=== PATIENT | male | born 1975 | race Caucasian/White ===

== ENCOUNTER 2018-07-01 23:54 | Inpatient (IN) | payer MEDICARE ==
[~2018-07-01] VITALS: Ht 167.6 cm; Wt 84.4 kg
--- NOTE | ~2018-07-01 | MORECARE ---
CASE MANAGEMENT DISCHARGE SUMMARY PATIENT: CHUCK RAJAN UNIT: [id number] ADM DATE: 07/02/18 AGE: 43 : 75 SEX: M ROOM/BED: D.1208 AUTHOR: EMIGDIO,DOC PHYSICIAN: REFERRING PHYSICIAN: YUMIKO GONZALEZ DO DATE OF SERVICE: 07/08/18 Discharge Plan Patient Name: CHUCK RAJAN Facility: [facility]:[place] : 1975 Planned Disposition: Custodial Facility Anticipated Discharge Date: Discharge Date: Expected LOS: Initial Reviewer: [email or web address] Initial Review Date: 07/02/2018 Generated: 07/08/18 5:11 pm Comments DCP- Discharge Planning Updated by [id number]: Kamala Ellis on 07/08/18 3:[address] CM notified that MD anticipates discharge back to half-way tomorrow. CM called patient's Joann FOSTER Treat and confirmed that she wants patient to return to [facility] upon hospital DC. Informed her that hospital anticipates discharge tomorrow. Reviewed IMM. CM called and spoke with Britt[facility] at [facility] about anticipated DC. CM was informed that facility would need YOLIS completed. CM completed and faxed YOLIS. CM faxed requested records to half-way. Awaiting YOLIS results. CM will continue to follow and assist as needed with discharge planning needs. DCP- Discharge Planning Updated by [email or web address]: Elisa Fonseca on 07/07/18 5:[address] Patient Name: CHUCK RAJAN Admission Status: ER Accout number: [id number] Admission Date: 07-02-2018 : 1975 Admission Diagnosis:SEPSIS, UNSPECIFIED ORGANISM Attending: YUMIKO GONZALEZ Current LOS: 5 Anticipated DC Date: Planned Disposition: Custodial Facility Primary Insurance: MEDICARE A & B Discharge Planning Comments: Patient is a resident of [facility] . Patient is non-verbal. CM will continue to follow and assist with discharge planning / needs. Neurological Surgery Teacher: Elisa Fonseca DCP- Discharge Planning Updated by [email or web address]: Elisa Fonseca on 07/07/18 2:[address] CM has attempted to visit with patient he is non-verbal. According to records he is from a [facility] but unaware of which facility he is in. CM attempted to call contact listed received notice "not accepting calls at this time". CM will try to find out which facility he is from. External Providers External Provider: [facility] and [facility] Next Contact Date: Service Request Date: Service Type: Resolution: Reviewer: Comments: External Provider: WAYNE Taylor Next Contact Date: Service Request Date: Service Type: Resolution: Reviewer: Comments: Coverage Notice Reviewer: [id number] Ellis Notice Issued Date-Time: 07/08/2018 16:10 Notice Type: IM Discharge Notice Notice Delivered To: Other Relationship to Patient: Power of Log Inspector Mule Developer Name: Joann Treat Delivery Method: PHONE - Phone Adriana Days: Prior Verbal Notification: Recipient Understood Notice: Yes Recipient Signature: Med Rec Note Co-signed by Attending: Coverage Notice Comment: Reviewer: MARQUISE Ellis Notice Issued Date-Time: 07/08/2018 16:10 Notice Type: Patient Choice Letter Notice Delivered To: Other Relationship to Patient: Power of Log Inspector Mule Developer Name: Joann Treat Delivery Method: PHONE - Phone Adriana Days: Prior Verbal Notification: Recipient Understood Notice: Yes Recipient Signature: Med Rec Note Co-signed by Attending: Coverage Notice Comment: Last DP export: 07/07/18 5:08 p Patient Name: CHUCK RAJAN Page 71936 at 1611 All edits/amendments must be made on the electronic document DICTATION DATE: 07/08/18 1610 PRODUCTION CONTROL CLERK: KRISTEN 07/08/18 1610 RPT#: [id number] DC DATE: STATUS: ADM IN [facility] [address] [place] [address] END OF REPORT
--- NOTE | ~2018-07-01 | MORECARE ---
CASE MANAGEMENT DISCHARGE SUMMARY PATIENT: CHUCK RAJAN UNIT: [id number] ADM DATE: 07/02/18 AGE: 43 : 75 SEX: M ROOM/BED: D.2306 AUTHOR: MELA BEAL PHYSICIAN: REFERRING PHYSICIAN: YUMIKO GONZALEZ DO DATE OF SERVICE: 07/06/18 Discharge Plan Patient Name: CHUCK RAJAN [facility] : 1975 Planned Disposition: Anticipated Discharge Date: Discharge Date: Expected LOS: Initial Reviewer: [email or web address] Initial Review Date: 07/02/2018 Generated: 07/06/18 8:23 pm Patient Name: CHUCK RAJAN Page 56950 at 1923 All edits/amendments must be made on the electronic document DICTATION DATE: 07/06/181922 SLIVER LAPPER: KRISTEN 07/06/181922 RPT#: [id number] DC DATE: STATUS: ADM IN [facility] [address] [place] [address] END OF REPORT
--- NOTE | ~2018-07-01 | MORECARE ---
CASE MANAGEMENT DISCHARGE SUMMARY PATIENT: CHUCK RAJAN UNIT: [id number] ADM DATE: 07/02/18 AGE: 43 : 75 SEX: M ROOM/BED: D.1208 AUTHOR: EMIGDIO,DOC PHYSICIAN: REFERRING PHYSICIAN: YUMIKO GONZALEZ DO DATE OF SERVICE: 07/09/18 Discharge Plan Patient Name: CHUCK RAJAN Facility: [facility]:[place] : 1975 Planned Disposition: Long-Term Facility Anticipated Discharge Date: Discharge Date: Expected LOS: Initial Reviewer: [email or web address] Initial Review Date: 07/02/2018 Generated: 07/09/18 1:29 pm Comments DCP- Discharge Planning Updated by [email or web address]: Kamala Ellis on 07/09/18 11:[address] Patient will be admitted to a SNF (Medicare Bed) at [facility]. DCP- Discharge Planning Updated by [email or web address]: Kamala Ellis on 07/09/18 11:[address] CM called and spoke with Brittaney at [facility]. RANDI informed Brittaney that YOLIS application was received and approved. And asked Brittaney about MD's request for facility to administer IV Vanc and IV Merrem for 3 more days. Brittaney stated the facility could complete patients IV antibiotics and requested that hospital leave current IV access in place and wait to discharge patient back to facility after todays 1300 dose. CM faxed updated records and copy of YOLIS to Brittaney as requested. RANDI spoke with nurse Nohemy about leaving IV access for penitentiary, may discharge patient back to facility via ambulance after 1300 Vanc and Merrem dose. Nohemy voiced understanding. CM attempted to reach patient's POA, Joann Treat but received voice message that says "The person you are trying to reach is not accepting calls at this time" CM will continue to attempt to reach POA. DCP- Discharge Planning Updated by [email or web address]: Kamala Ellis on 07/08/18 3:[address] CM notified that MD anticipates discharge back to penitentiary tomorrow. RANDI called patient's POA, Joann Treat and confirmed that she wants patient to return to [facility] upon hospital DC. Informed her that hospital anticipates discharge tomorrow. Reviewed IMM. CM called and spoke with Brittaney at [facility] about anticipated DC. CM was informed that facility would need YOLIS completed. CM completed and faxed YOLIS. CM faxed requested records to penitentiary. Awaiting YOLIS results. CM will continue to follow and assist as needed with discharge planning needs. DCP- Discharge Planning Updated by [id number]: Elisa Fonseca on 07/07/18 5:[address] Patient Name: CHUCK RAJAN Admission Status: ER Accout number: [id number] Admission Date: 07-02-2018 : 1975 Admission Diagnosis:SEPSIS, UNSPECIFIED ORGANISM Attending: YUMIKO GONZALEZ Current LOS: 5 Anticipated DC Date: Planned Disposition: Long-Term Facility Primary Insurance: MEDICARE A & B Discharge Planning Comments: Patient is a resident of [facility] . Patient is non-verbal. CM will continue to follow and assist with discharge planning / needs. German Teacher: Elisa Fonseca DCP- Discharge Planning Updated by [id number]: Elisa Marian on 07/07/18 2:[address] CM has attempted to visit with patient he is non-verbal. According to records he is from a [facility] but unaware of which facility he is in. CM attempted to call contact listed received notice "not accepting calls at this time". CM will try to find out which facility he is from. Coverage Notice Reviewer: [email or web address] Cristina Ellis Notice Issued Date-Time: 07/08/2018 16:10 Notice Type: IM Discharge Notice Notice Delivered To: Other Relationship to Patient: Power of Job Placement Officer Control Panel Builder Name: Joann Treat Delivery Method: PHONE - Phone Adriana Days: Prior Verbal Notification: Recipient Understood Notice: Yes Recipient Signature: Med Rec Note Co-signed by Attending: Coverage Notice Comment: Reviewer: [id number] Cristina Ellis Notice Issued Date-Time: 07/08/2018 16:10 Notice Type: Patient Choice Letter Notice Delivered To: Other Relationship to Patient: Power of Job Placement Officer Control Panel Builder Name: Joann Treat Delivery Method: PHONE - Phone Adriana Days: Prior Verbal Notification: Recipient Understood Notice: Yes Recipient Signature: Med Rec Note Co-signed by Attending: Coverage Notice Comment: Last DP export: 07/09/18 11:10 a Patient Name: CHUCK RAJAN Page 07875 at 1229 All edits/amendments must be made on the electronic document DICTATION DATE: 07/09/181227 GROUNDS CREW SUPERVISOR: KRISTEN 07/09/181227 RPT#: [id number] DC DATE: STATUS: ADM IN [facility] [address] [place] [address] END OF REPORT
--- NOTE | ~2018-07-01 | MORECARE ---
CASE MANAGEMENT DISCHARGE SUMMARY PATIENT: CHUCK RAJAN UNIT: [id number] ADM DATE: 07/02/18 AGE: 43 : 75 SEX: M ROOM/BED: D.1208 AUTHOR: MELA BEAL PHYSICIAN: REFERRING PHYSICIAN: YUMIKO GONZALEZ DO DATE OF SERVICE: 07/07/18 Discharge Plan Patient Name: CHUCK RAJAN Facility: [facility]:[place] : 1975 Planned Disposition: Anticipated Discharge Date: Discharge Date: Expected LOS: Initial Reviewer: [email or web address] Initial Review Date: 07/02/2018 Generated: 07/07/18 5:01 pm Comments DCP- Discharge Planning Updated by [email or web address]: Elisa Fonseca on 07/07/18 2:[address] CM has attempted to visit with patient he is non-verbal. According to records [facility] a [facility] but unaware of which facility he is in. CM attempted to call contact listed received notice "not accepting calls at this time". CM will try to find out which facility he is from. Last DP export: 07/06/18 6:23 p Patient Name: CHUCK RAJAN Page 81398 at 1601 All edits/amendments must be made on the electronic document DICTATION DATE: 07/07/18 160 ALLEY CLEANER: KRISTEN 07/07/18 1601 RPT#: [id number] DC DATE: STATUS: ADM IN [facility] [address] [place] [address] END OF REPORT
--- NOTE | ~2018-07-01 | MORECARE ---
CASE MANAGEMENT DISCHARGE SUMMARY PATIENT: CHUCK RAJAN UNIT: [id number] ADM DATE: 07/02/18 AGE: 43 : 75 SEX: M ROOM/BED: D.1208 AUTHOR: EMIGDIO,DOC PHYSICIAN: REFERRING PHYSICIAN: YUMIKO GONZALEZ DO DATE OF SERVICE: 07/09/18 Discharge Plan Patient Name: CHUCK RAJAN Facility: [facility]:[place] : 1975 Planned Disposition: Intermediate Facility Anticipated Discharge Date: Discharge Date: Expected LOS: Initial Reviewer: [id number] Initial Review Date: 07/02/2018 Generated: 07/09/18 1:10 pm Comments DCP- Discharge Planning Updated by [email or web address]: Kamala Ellis on 07/09/18 11:[address] RANDI called and spoke with Brittaney at [facility]. CM informed Brittaney that YOLIS application was received and approved. And asked Brittaney about MD's request for facility to administer IV Vanc and IV Merrem for 3 more days. Brittaney stated the facility could complete patients IV antibiotics and requested that hospital leave current IV access in place and wait to discharge patient back to facility after todays 1300 dose. CM faxed updated records and copy of YOLIS to Brittaney as requested. RANDI spoke with nurse Nohemy about leaving IV access for detention, may discharge patient back to facility via ambulance after 1300 Vanc and Merrem dose. Nohemy voiced understanding. CM attempted to reach patient's POAJoann Treat but received voice message that says "The person you are trying to reach is not accepting calls at this time" CM will continue to attempt to reach POA. DCP- Discharge Planning Updated by [email or web address]: Kamala Ellis on 07/08/18 3:[address] CM notified that MD anticipates discharge back to detention tomorrow. CM called patient's POAJoann Treat and confirmed that she wants patient to return to [facility] custodial upon hospital DC. Informed her that hospital anticipates discharge tomorrow. Reviewed IMM. CM called and spoke with Brittaney at [facility] about anticipated DC. CM was informed that facility would need YOLIS completed. CM completed and faxed YOLIS. CM faxed requested records to detention. Awaiting YOLIS results. CM will continue to follow and assist as needed with discharge planning needs. DCP- Discharge Planning Updated by [id number]: Elisa Fonseca on 07/07/18 5:[address] Patient Name: CHUCK RAJAN Admission Status: ER Accout number: [id number] Admission Date: 07-02-2018 : 1975 Admission Diagnosis:SEPSIS, UNSPECIFIED ORGANISM Attending: YUMIKO GONZALEZ Current LOS: 5 Anticipated DC Date: Planned Disposition: Intermediate Facility Primary Insurance: MEDICARE A & B Discharge Planning Comments: Patient is a resident of [facility] . Patient is non-verbal. CM will continue to follow and assist with discharge planning / needs. Leather Goods I Assembler: Elisa Fonseca DCP- Discharge Planning Updated by [id number]: Elisa Marian on 07/07/18 2:[address] CM has attempted to visit with patient he is non-verbal. According to records he is from a [facility] but unaware of which facility he is in. CM attempted to call contact listed received notice "not accepting calls at this time". CM will try to find out which facility he is from. Coverage Notice Reviewer: [id number] Ellis Notice Issued Date-Time: 07/08/2018 16:10 Notice Type: IM Discharge Notice Notice Delivered To: Other Relationship to Patient: Power of Rn Endoscopy Creative Arts Therapist Name: Joann Valdes Delivery Method: PHONE - Phone Adriana Days: Prior Verbal Notification: Recipient Understood Notice: Yes Recipient Signature: Med Rec Note Co-signed by Attending: Coverage Notice Comment: Reviewer: [id number] Ellis Notice Issued Date-Time: 07/08/2018 16:10 Notice Type: Patient Choice Letter Notice Delivered To: Other Relationship to Patient: Power of Rn Endoscopy Creative Arts Therapist Name: Joann Valdes Delivery Method: PHONE - Phone Adriana Days: Prior Verbal Notification: Recipient Understood Notice: Yes Recipient Signature: Med Rec Note Co-signed by Attending: Coverage Notice Comment: Last DP export: 07/08/18 3:11 p Patient Name: CHUCK RAJAN Page 11785 at 1210 All edits/amendments must be made on the electronic document DICTATION DATE: 07/09/181208 TOMATO PULPER OPERATOR: KRISTEN 07/09/181208 RPT#: [id number] DC DATE: STATUS: ADM IN [facility] [address] [place] [address] END OF REPORT
--- NOTE | ~2018-07-01 | MORECARE ---
CASE MANAGEMENT DISCHARGE SUMMARY PATIENT: CHUCK RAJAN UNIT: [id number] ADM DATE: 07/02/18 AGE: 43 : 75 SEX: M ROOM/BED: D.1208 AUTHOR: MELA BEAL PHYSICIAN: REFERRING PHYSICIAN: YUMIKO GONZALEZ DO DATE OF SERVICE: 07/07/18 Discharge Plan Patient Name: CHUCK RAJAN Facility: [facility]:[place] : 1975 Planned Disposition: Group Home Facility Anticipated Discharge Date: Discharge Date: Expected LOS: Initial Reviewer: [email or web address] Initial Review Date: 07/02/2018 Generated: 07/07/18 7:08 pm Comments DCP- Discharge Planning Updated by [email or web address]: Elisa Fonseca on 07/07/18 5:[address] Patient Name: CHUCK RAJAN Admission Status: ER Accout number: [id number] Admission Date: 07-02-2018 : 1975 Admission Diagnosis:SEPSIS, UNSPECIFIED ORGANISM Attending: YUMIKO GONZALEZ Current LOS: 5 Anticipated DC Date: Planned Disposition: Group Home Facility Primary Insurance: MEDICARE A & B Discharge Planning Comments: Patient is a resident of [facility] . Patient is non-verbal. CM will continue to follow and assist with discharge planning / needs. Hairspring Ii Inspector: Elisa Fonseca DCP- Discharge Planning Updated by [email or web address]: Elisa Fonseca on 07/07/18 2:[address] CM has attempted to visit with patient he is non-verbal. According to records he is from a [facility] but unaware of which facility he is in. CM attempted to call contact listed received notice "not accepting calls at this time". CM will try to find out which facility he is from. Last DP export: 07/07/18 3:01 p Patient Name: CHUCK RAJAN Page 31213 at 1808 All edits/amendments must be made on the electronic document DICTATION DATE: 07/07/181806 EVENING OR NIGHT NURSE SUPERVISOR: KRISTEN 07/07/181806 RPT#: [id number] DC DATE: STATUS: ADM IN [facility] [address] [place] [address] END OF REPORT
--- NOTE | ~2018-07-01 | MORECARE ---
CASE MANAGEMENT DISCHARGE SUMMARY PATIENT: CHUCK RAJAN UNIT: [id number] ADM DATE: 07/02/18 AGE: 43 : 75 SEX: M ROOM/BED: D.1208 AUTHOR: EMIGDIO,DOC PHYSICIAN: REFERRING PHYSICIAN: YUMIKO GONZALEZ DO DATE OF SERVICE: 07/09/18 Discharge Plan Patient Name: CHUCK RAJAN Facility: [facility]:[place] : 1975 Planned Disposition: [facility] Facility Anticipated Discharge Date: Discharge Date: Expected LOS: Initial Reviewer: [id number] Initial Review Date: 07/02/2018 Generated: 07/09/18 3:15 pm Comments DCP- Discharge Planning Updated by [email or web address]: Kamala Ellis on 07/09/18 1:[address] CM called and spoke with CRISTIAN Joanndax Avila to inform her of expected discharge back to [facility] upon arrival of ambulance to transport patient. Joann verbalized understanding and satisfaction with discharge plan. DCP- Discharge Planning Updated by [email or web address]: Kamala Ellis on 07/09/18 11:[address] Patient will be admitted to a SNF (Medicare Bed) at [facility]. DCP- Discharge Planning Updated by [email or web address]: Kamala Ellis on 07/09/18 11:[address] CM called and spoke with Brittaney at [facility]. RANDI informed Brittaney that YOLIS application was received and approved. And asked Brittaney about MD's request for facility to administer IV Vanc and IV Merrem for 3 more days. Brittaney stated the facility could complete patients IV antibiotics and requested that hospital leave current IV access in place and wait to discharge patient back to facility after todays 1300 dose. CM faxed updated records and copy of YOLIS to Brittaney as requested. RANDI spoke with nurse Nohemy about leaving IV access for longterm, may discharge patient back to facility via ambulance after 1300 Vanc and Merrem dose. Nohemy voiced understanding. CM attempted to reach patient's POA, Joanndax Valdes but received voice message that says "The person you are trying to reach is not accepting calls at this time" CM will continue to attempt to reach POA. DCP- Discharge Planning Updated by [email or web address]: Kamala Ellis on 07/08/18 3:[address] CM notified that MD anticipates discharge back to longterm tomorrow. CM called patient's POA, Joann Valdes and confirmed that she wants patient to return to [facility] upon hospital DC. Informed her that hospital anticipates discharge tomorrow. Reviewed IMM. CM called and spoke with Brittaney at [facility] about anticipated DC. CM was informed that facility would need YOLIS completed. CM completed and faxed YOLIS. CM faxed requested records to longterm. Awaiting YOLIS results. CM will continue to follow and assist as needed with discharge planning needs. DCP- Discharge Planning Updated by [email or web address]: Elisa Fonseca on 07/07/18 5:[address] Patient Name: CHUCK RAJAN Admission Status: ER Accout number: [id number] Admission Date: 07-02-2018 : 1975 Admission Diagnosis:SEPSIS, UNSPECIFIED ORGANISM Attending: YUMIKO GONZALEZ Current LOS: 5 Anticipated DC Date: Planned Disposition: [facility] Facility Primary Insurance: MEDICARE A & B Discharge Planning Comments: Patient is a resident of [facility] . Patient is non-verbal. CM will continue to follow and assist with discharge planning / needs. Conche Operator: Elisa Fonseca DCP- Discharge Planning Updated by [email or web address]: Elisa Fonseca on 07/07/18 2:[address] CM has attempted to visit with patient he is non-verbal. According to records he is from a Snf but unaware of which facility he is in. CM attempted to call contact listed received notice "not accepting calls at this time". CM will try to find out which facility he is from. Coverage Notice Reviewer: [email or web address] Cristina Ellis Notice Issued Date-Time: 07/08/2018 16:10 Notice Type: IM Discharge Notice Notice Delivered To: Other Relationship to Patient: Power of Cio Alfalfa Dehydrator Operator Name: Joann Valdes Delivery Method: PHONE - Phone Adriana Days: Prior Verbal Notification: Recipient Understood Notice: Yes Recipient Signature: Med Rec Note Co-signed by Attending: Coverage Notice Comment: Reviewer: [id number] Cristina Ellis Notice Issued Date-Time: 07/08/2018 16:10 Notice Type: Patient Choice Letter Notice Delivered To: Other Relationship to Patient: Power of Cio Alfalfa Dehydrator Operator Name: Joann Valdes Delivery Method: PHONE - Phone Adriana Days: Prior Verbal Notification: Recipient Understood Notice: Yes Recipient Signature: Med Rec Note Co-signed by Attending: Coverage Notice Comment: Last DP export: 07/09/18 11:29 a Patient Name: CHUCK RAJAN Page 59730 at 1415 All edits/amendments must be made on the electronic document DICTATION DATE: 07/09/181413 OB/GYN: KRISTEN 07/09/181413 RPT#: [id number] DC DATE: STATUS: ADM IN [facility] [address] [place] [address] END OF REPORT
--- NOTE | ~2018-07-01 | MORECARE ---
CASE MANAGEMENT DISCHARGE SUMMARY PATIENT: CHUCK RAJAN UNIT: [id number] ADM DATE: 07/02/18 AGE: 43 : 75 SEX: M ROOM/BED: D.1208 AUTHOR: EMIGDIO,DOC PHYSICIAN: REFERRING PHYSICIAN: YUMIKO GONZALEZ DO DATE OF SERVICE: 07/10/18 Discharge Plan Patient Name: CHUCK RAJAN Facility: [facility]:[place] : 1975 Planned Disposition: Longterm Facility Anticipated Discharge Date: Discharge Date: 07/09/2018 Expected LOS: 0 Initial Reviewer: [id number] Initial Review Date: 07/02/2018 Generated: 07/10/18 9:26 am Comments DCP- Discharge Planning Updated by [email or web address]: Kamala Ellis on 07/09/18 1:[address] CM called and spoke with CRISTIAN Joann Austin to inform her of expected discharge back to [facility] upon arrival of ambulance to transport patient. Joann verbalized understanding and satisfaction with discharge plan. DCP- Discharge Planning Updated by [email or web address]: Kamala Ellis on 07/09/18 11:[address] Patient will be admitted to a SNF (Medicare Bed) at [facility]. DCP- Discharge Planning Updated by [email or web address]: Kamala Ellis on 07/09/18 11:[address] CM called and spoke with Brittaney at [facility]. CM informed Brittaney that YOLIS application was received and approved. And asked Brittaney about 's request for facility to administer IV Vanc and IV Merrem for 3 more days. Brittaney stated the facility could complete patients IV antibiotics and requested that hospital leave current IV access in place and wait to discharge patient back to facility after todays 1300 dose. RANDI faxed updated records and copy of YOLIS to Brittaney as requested. RANDI spoke with nurse Nohemy about leaving IV access for long-term, may discharge patient back to facility via ambulance after 1300 Vanc and Merrem dose. Nohemy voiced understanding. CM attempted to reach patient's POA, Joanndax Valdes but received voice message that says "The person you are trying to reach is not accepting calls at this time" CM will continue to attempt to reach POA. DCP- Discharge Planning Updated by [id number]: Kamala Ellis on 07/08/18 3:[address] CM notified that MD anticipates discharge back to long-term tomorrow. CM called patient's POA, Joann Valdes and confirmed that she wants patient to return to [facility] upon hospital DC. Informed her that hospital anticipates discharge tomorrow. Reviewed IMM. CM called and spoke with Brittaney at [facility] about anticipated DC. CM was informed that facility would need YOLIS completed. CM completed and faxed YOLIS. CM faxed requested records to long-term. Awaiting YOLIS results. CM will continue to follow and assist as needed with discharge planning needs. DCP- Discharge Planning Updated by [id number]: Elisa Fonseca on 07/07/18 5:[address] Patient Name: CHUCK RAJAN Admission Status: ER Accout number: [id number] Admission Date: 07-02-2018 : 1975 Admission Diagnosis:SEPSIS, UNSPECIFIED ORGANISM Attending: YUMIKO GONZALEZ Current LOS: 5 Anticipated DC Date: Planned Disposition: Longterm Facility Primary Insurance: MEDICARE A & B Discharge Planning Comments: Patient is a resident of [facility] . Patient is non-verbal. CM will continue to follow and assist with discharge planning / needs. Back Winder: Elisa Fonseca DCP- Discharge Planning Updated by [id number]: Elisa Fonseca on 07/07/18 2:[address] CM has attempted to visit with patient he is non-verbal. According to records he is from a [facility] but unaware of which facility he is in. CM attempted to call contact listed received notice "not accepting calls at this time". CM will try to find out which facility he is from. Coverage Notice Reviewer: [email or web address] Cristina Ellis Notice Issued Date-Time: 07/08/2018 16:10 Notice Type: IM Discharge Notice Notice Delivered To: Other Relationship to Patient: Power of Building Carpenter Plug Sorter Name: Joann Valdes Delivery Method: PHONE - Phone Adriana Days: Prior Verbal Notification: Recipient Understood Notice: Yes Recipient Signature: Med Rec Note Co-signed by Attending: Coverage Notice Comment: Reviewer: [id number] Cristina Ellis Notice Issued Date-Time: 07/08/2018 16:10 Notice Type: Patient Choice Letter Notice Delivered To: Other Relationship to Patient: Power of Building Carpenter Plug Sorter Name: Joann Valdes Delivery Method: PHONE - Phone Adriana Days: Prior Verbal Notification: Recipient Understood Notice: Yes Recipient Signature: Med Rec Note Co-signed by Attending: Coverage Notice Comment: Last DP export: 07/09/18 1:15 p Patient Name: CHUCK RAJAN Page [phone] at 0827 All edits/amendments must be made on the electronic document DICTATION DATE: 07/10/18825 MAIL CLERKS SUPERVISOR: KRISTEN 07/10/18825 RPT#: [id number] DC DATE:07/09/18 STATUS: DIS IN [facility] [address] [place] [address] END OF REPORT
[2018-07-02] VITALS (20 sets, daily range): BP systolic 90–121; BP diastolic 48–88; BMI 30.1
[2018-07-02 00:56] LABS: BASOPHILS 0.1 % (0-2); EOSINOPHILS 0.5 % (0-7); HEMATOCRIT 47.1 % (42.0-54.0); HEMOGLOBIN 15.4 g/dL (13.5-17.5); IMMATURE GRANULOCYTES 0.2 % (0-5); LYMPHOCYTES 8.7 % (15-50); MCH 31.5 pg (26.0-34.0); MCHC 32.7 g/dL (31.0-37.0); MCV 96.3 fL (80.0-100.0); MONOCYTES 11.8 % (2-11); NEUTROPHILS 78.7 % (40-80); PLATELET COUNT 279 10x3/uL (130-400); RBC 4.89 10x6/uL (4.20-6.10); RDW 13.6 % (11.5-14.5); WBC 15.7 10x3/uL (4.8-10.8)
[2018-07-02 01:17] LABS: INR 1.04 (0.85-1.17); PROTIME 13.1 SECONDS (11.6-15.0)
[2018-07-02 01:22] LABS: ALBUMIN 2.8 g/dL (3.4-5.0); ALKALINE PHOSPHATASE 84 U/L (46-116); ALT (SGPT) 19 U/L (10-68); BILIRUBIN - TOTAL 0.18 mg/dL (0.2-1.3); CALC OSMOLALITY 280 mosm/kg (275-300); CALCIUM 8.4 mg/dL (8.5-10.1); CHLORIDE - SERUM 103 mmol/L (98-107); CREATININE - SERUM 0.9 mg/dL (0.6-1.3); GLUCOSE 135 mg/dL (74-106); POTASSIUM - SERUM 3.7 mmol/L (3.5-5.1); PROTEIN - SERUM 7.7 g/dL (6.4-8.2); SODIUM 139 mmol/L (136-145); UREA NITROGEN 14 mg/dL (7-18); eGFR NON AFRICAN AMERICAN > 90 mL/min (90-120)
[2018-07-02 01:31] LABS: CKMB 0.3 U/L (0.0-3.6); CREATINE KINASE 107 UL (21-232); TROPONIN-I < 0.017 ng/mL (0.000-0.060)
[2018-07-02 01:33] LABS: APTT < 20.0 SECONDS (22.8-39.4)
[2018-07-02 01:47] LABS: APPEARANCE CLEAR (CLEAR); BILIRUBIN NEGATIVE (NEGATIVE); COLOR YELLOW (YELLOW); GLUCOSE NEGATIVE (NEGATIVE); KETONE NEGATIVE (NEGATIVE); NITRITE NEGATIVE (NEGATIVE); PROTEIN TRACE mg/dL (NEGATIVE); UROBILINOGEN NORMAL (NORMAL)
[2018-07-02 01:48] LABS: BACTERIA FEW /hpf (NONE SEEN); EPITHELIAL CELLS 0-5 /hpf (0-5); RED CELLS - URINE NONE SEEN /hpf (0-5); WHITE CELLS - URINE 0-5 /hpf (0-5)
[2018-07-02] MEDS ORDERED: POTASSIUM20 MEQ/15 PO (04:27)
[2018-07-02] MEDS ORDERED: ATIVAN0.5 MG PO (04:29)
[2018-07-02] MEDS ORDERED: LASIX40 MG PO (04:29)
[2018-07-02] MEDS ORDERED: GABAPENTIN100 MG PO (04:30)
[2018-07-02] MEDS ORDERED: CALCIUM 500 +1 EAC3 PO (04:30)
[2018-07-02] MEDS ORDERED: FISH OIL 1,0001 CA1 PO (04:30)
[2018-07-02] MEDS ORDERED: LIPITOR10 MG PO (04:32)
[2018-07-02] MEDS ORDERED: DEPAKOTE ER500 MG PO (04:33)
[2018-07-02] MEDS ORDERED: DILANTIN100 MG PO (04:33)
[2018-07-02] MEDS ORDERED: VITAMIN D250000 UNIT PO (04:33)
[2018-07-02] MEDS ORDERED: ALOPHEN PILLS5 MG PO (04:34)
[2018-07-02] MEDS ORDERED: DULCOLAX10 MG/SUPP RC (04:34)
[2018-07-02] MEDS ORDERED: KEPPRA750 MG PO (04:35)
[2018-07-02] MEDS ORDERED: KEPPRA500 MG PO (04:35)
[2018-07-03] VITALS (24 sets, daily range): BP systolic 87–137; BP diastolic 45–96; Ht 167.6 cm; Wt 84.4 kg
[2018-07-03 03:40] LABS: BASOPHILS 0.1 % (0-2); EOSINOPHILS 0.2 % (0-7); IMMATURE GRANULOCYTES 0.2 % (0-5); MCH 31.5 pg (26.0-34.0); MCHC 32.5 g/dL (31.0-37.0); MEAN PLATELET VOLUME 9.8 fL (7.4-10.4); NEUTROPHILS 75.5 % (40-80); RDW 13.1 % (11.5-14.5)
[2018-07-03 03:47] LABS: HEMOGLOBIN 11.7 g/dL (13.5-17.5); PLATELET COUNT 183 10x3/uL (130-400); RBC 3.71 10x6/uL (4.20-6.10); WBC 11.3 10x3/uL (4.8-10.8)
[2018-07-03 04:17] LABS: ALKALINE PHOSPHATASE 60 U/L (46-116); BILIRUBIN - TOTAL 0.47 mg/dL (0.2-1.3); CALC OSMOLALITY 277 mosm/kg (275-300); CALCIUM 8.1 mg/dL (8.5-10.1); CARBON DIOXIDE 26.9 mmol/L (21.0-32.0); CHLORIDE - SERUM 107 mmol/L (98-107); CREATININE - SERUM 0.7 mg/dL (0.6-1.3); GLUCOSE 101 mg/dL (74-106); POTASSIUM - SERUM 3.9 mmol/L (3.5-5.1); PROTEIN - SERUM 6.1 g/dL (6.4-8.2); SODIUM 139 mmol/L (136-145); UREA NITROGEN 13 mg/dL (7-18); eGFR NON AFRICAN AMERICAN > 90 mL/min (90-120)
[2018-07-03 04:26] LABS: ALT (SGPT) 29 U/L (10-68)
[2018-07-04] VITALS (23 sets, daily range): BP systolic 90–156; BP diastolic 55–134
[2018-07-04 08:36] LABS: BASOPHILS 0.1 % (0-2); EOSINOPHILS 1.5 % (0-7); HEMATOCRIT 35.3 % (42.0-54.0); HEMOGLOBIN 11.6 g/dL (13.5-17.5); IMMATURE GRANULOCYTES 0.5 % (0-5); LYMPHOCYTES 15.5 % (15-50); MCH 31.4 pg (26.0-34.0); MCHC 32.9 g/dL (31.0-37.0); MCV 95.4 fL (80.0-100.0); MONOCYTES 10.8 % (2-11); NEUTROPHILS 71.6 % (40-80); PLATELET COUNT 204 10x3/uL (130-400); RDW 12.5 % (11.5-14.5); WBC 8.1 10x3/uL (4.8-10.8)
[2018-07-04 08:54] LABS: ALBUMIN 2.1 g/dL (3.4-5.0); ALKALINE PHOSPHATASE 73 U/L (46-116); ALT (SGPT) 25 U/L (10-68); BILIRUBIN - TOTAL 0.45 mg/dL (0.2-1.3); CALC OSMOLALITY 274 mosm/kg (275-300); CALCIUM 8.4 mg/dL (8.5-10.1); CARBON DIOXIDE 25.1 mmol/L (21.0-32.0); CHLORIDE - SERUM 102 mmol/L (98-107); CREATININE - SERUM 0.6 mg/dL (0.6-1.3); GLUCOSE 79 mg/dL (74-106); POTASSIUM - SERUM 3.6 mmol/L (3.5-5.1); PROTEIN - SERUM 6.6 g/dL (6.4-8.2); SODIUM 139 mmol/L (136-145); UREA NITROGEN 7 mg/dL (7-18); eGFR NON AFRICAN AMERICAN > 90 mL/min (90-120)
[2018-07-05] VITALS (23 sets, daily range): BP systolic 110–155; BP diastolic 58–109
[2018-07-05 07:00] LABS: BASOPHILS 0.3 % (0-2); EOSINOPHILS 3.9 % (0-7); HEMATOCRIT 36.2 % (42.0-54.0); IMMATURE GRANULOCYTES 0.4 % (0-5); LYMPHOCYTES 20.4 % (15-50); MCH 31.7 pg (26.0-34.0); MCHC 33.1 g/dL (31.0-37.0); MCV 95.8 fL (80.0-100.0); MONOCYTES 13.8 % (2-11); NEUTROPHILS 61.2 % (40-80); PLATELET COUNT 228 10x3/uL (130-400); RBC 3.78 10x6/uL (4.20-6.10); RDW 12.5 % (11.5-14.5); WBC 6.7 10x3/uL (4.8-10.8)
[2018-07-05 07:09] LABS: ALBUMIN 2.1 g/dL (3.4-5.0); ALKALINE PHOSPHATASE 84 U/L (46-116); ALT (SGPT) 23 U/L (10-68); CALC OSMOLALITY 276 mosm/kg (275-300); CALCIUM 8.6 mg/dL (8.5-10.1); CARBON DIOXIDE 26.2 mmol/L (21.0-32.0); CHLORIDE - SERUM 102 mmol/L (98-107); CREATININE - SERUM 0.6 mg/dL (0.6-1.3); GLUCOSE 78 mg/dL (74-106); POTASSIUM - SERUM 3.7 mmol/L (3.5-5.1); PROTEIN - SERUM 6.8 g/dL (6.4-8.2); SODIUM 141 mmol/L (136-145); UREA NITROGEN 5 mg/dL (7-18); eGFR NON AFRICAN AMERICAN > 90 mL/min (90-120)
[2018-07-06] VITALS (11 sets, daily range): BP systolic 106–131; BP diastolic 65–95
[2018-07-07] VITALS: BP 114/76
[2018-07-07 04:00] VITALS: BP 106/72
[2018-07-07 07:00] VITALS: BP 190/93
[2018-07-07 11:00] VITALS: BP 118/78
[2018-07-07 20:30] VITALS: BP 137/72
[2018-07-08 01:06] VITALS: BP 114/71
[2018-07-08 03:29] VITALS: BP 118/64
[2018-07-08 08:11] VITALS: BP 115/69
[2018-07-08 11:30] VITALS: BP 115/70
[2018-07-08 15:35] VITALS: BP 108/66
[2018-07-08 20:14] VITALS: BP 107/67
[2018-07-09] VITALS: BP 102/62
[2018-07-09 04:00] VITALS: BP 100/57
[2018-07-09 05:38] LABS: BASOPHILS 0.3 % (0-2); EOSINOPHILS 4.6 % (0-7); HEMATOCRIT 34.1 % (42.0-54.0); HEMOGLOBIN 11.3 g/dL (13.5-17.5); LYMPHOCYTES 21.3 % (15-50); MCH 31.7 pg (26.0-34.0); MCHC 33.1 g/dL (31.0-37.0); MCV 95.8 fL (80.0-100.0); MEAN PLATELET VOLUME 9.1 fL (7.4-10.4); MONOCYTES 17.8 % (2-11); RBC 3.56 10x6/uL (4.20-6.10); WBC 7.9 10x3/uL (4.8-10.8)
[2018-07-09 05:50] LABS: PLATELET COUNT 349 10x3/uL (130-400)
[2018-07-09 06:10] LABS: CALC OSMOLALITY 278 mosm/kg (275-300); CALCIUM 8.6 mg/dL (8.5-10.1); CHLORIDE - SERUM 106 mmol/L (98-107); CREATININE - SERUM 0.7 mg/dL (0.6-1.3); GLUCOSE 110 mg/dL (74-106); POTASSIUM - SERUM 3.7 mmol/L (3.5-5.1); SODIUM 141 mmol/L (136-145); UREA NITROGEN 4 mg/dL (7-18); eGFR NON AFRICAN AMERICAN > 90 mL/min (90-120)
[2018-07-09 08:05] VITALS: BP 148/78
[2018-07-09 10:38] VITALS: BP 124/50
[2018-07-09] MEDS ORDERED: VANCOMYCIN 1 GM/1 G1 IV (12:56)
[2018-07-09] MEDS ORDERED: MERREM 1 GM/NS 11 G1 IV (12:57)
[2018-07-09 14:58] VITALS: BP 100/73
== END 2018-07-09 17:05 | DRG 871 ==
LOC: D.ER 23:54 → D.ICU 07-02 01:56 → D.EDHOLD 07-02 01:56 → D.ICU 07-02 13:03 → D.M3 07-07 14:54
PROVIDERS: Family Medicine; Internal Medicine Nephrology
PROC: 05HY33Z Insertion of Infusion Device into Upper Vein, Percutaneous Approach (ICD-10-PCS; principal; 2018-07-02)
DX: A41.9 Sepsis, unspecified organism (principal); J18.9 Pneumonia, unspecified organism; J96.01 Acute respiratory failure with hypoxia; R53.2 Functional quadriplegia; G93.40 Encephalopathy, unspecified; E44.0 Moderate protein-calorie malnutrition; D64.9 Anemia, unspecified; G40.909 Epilepsy, unspecified, not intractable, without status epilepticus; Z68.30 Body mass index [BMI] 30.0-30.9, adult

== ENCOUNTER 2019-01-29 10:17 | Inpatient (IN) | payer MEDICARE ==
[~2019-01-29] VITALS: Ht 167.6 cm; Wt 76.4 kg
[2019-01-29] VITALS (16 sets, daily range): BP systolic 101–131; BP diastolic 64–89; BMI 27.6
[~2019-01-29 10:17] MED LIST: ALOPHEN PILLS5 MG PO; ATIVAN0.5 MG PO; CALCIUM 500 +1 EAC3 PO; DEPAKOTE ER500 MG PO; DILANTIN100 MG PO; DULCOLAX10 MG/SUPP RC; FISH OIL 1,0001 CA1 PO; GABAPENTIN100 MG PO; KEPPRA500 MG PO; KEPPRA750 MG PO; LASIX40 MG PO; LIPITOR10 MG PO; MERREM 1 GM/NS 11 G1 IV; POTASSIUM20 MEQ/15 PO; VANCOMYCIN 1 GM/1 G1 IV; VITAMIN D250000 UNIT PO
--- NOTE | 2019-01-29 10:25 | NUR ---
SUCTIONED COPIOUS AMTS THICK WHITE SECRETIONS FORM MOUTH AND ORALPHARYNX
--- NOTE | 2019-01-29 10:35 | NUR ---
RT AT BS FOR SVN AND ABG'S
[2019-01-29 11:10] LABS: BASOPHILS 0.2 % (0-2); EOSINOPHILS 0.3 % (0-7); HEMATOCRIT 44.8 % (42.0-54.0); IMMATURE GRANULOCYTES 1.2 % (0-5); LYMPHOCYTES 5.7 % (15-50); MCH 31.8 pg (26.0-34.0); MCHC 33.5 g/dL (31.0-37.0); MCV 94.9 fL (80.0-100.0); MEAN PLATELET VOLUME 9.9 fL (7.4-10.4); MONOCYTES 8.4 % (2-11); NEUTROPHILS 84.2 % (40-80); RBC 4.72 10x6/uL (4.20-6.10); RDW 14.5 % (11.5-14.5)
[2019-01-29 11:15] LABS: PLATELET COUNT 185 10x3/uL (130-400)
[2019-01-29 11:20] LABS: INR 1.3 (0.85-1.17); PROTIME 15.7 SECONDS (11.6-15.0)
[2019-01-29 11:25] LABS: ALBUMIN 2.7 g/dL (3.4-5.0); ALKALINE PHOSPHATASE 90 U/L (46-116); ALT (SGPT) 30 U/L (10-68); CALC OSMOLALITY 288 mosm/kg (275-300); CALCIUM 9.1 mg/dL (8.5-10.1); CARBON DIOXIDE 25.6 mmol/L (21.0-32.0); CHLORIDE - SERUM 102 mmol/L (98-107); CREATININE - SERUM 1.4 mg/dL (0.6-1.3); GLUCOSE 192 mg/dL (74-106); POTASSIUM - SERUM 3.9 mmol/L (3.5-5.1); PROTEIN - SERUM 8.3 g/dL (6.4-8.2); SODIUM 141 mmol/L (136-145); UREA NITROGEN 21 mg/dL (7-18); eGFR NON AFRICAN AMERICAN 59 mL/min (90-120)
[2019-01-29 11:38] LABS: D-DIMER-QUANTITATIVE 2.96 ug/mLFEU (0.20-0.54)
--- NOTE | 2019-01-29 11:38 | NUR ---
RCVD TC FROM LAB CRITICAL LAB: D -DIMER = 2.96 DR KAPLAN AND LOPEZ CRAWFORD NOTIFIED
--- NOTE | 2019-01-29 11:40 | NUR ---
LACTIC ACID 7.1CRITICAL LAB RECEIVED FROM YAHIR IN LAB. GIVEN TO PARISA
[2019-01-29 11:46] LABS: CREATINE KINASE 50 UL (21-232); PRO BNP 3963 pg/mL (0-125); TROPONIN-I < 0.017 ng/mL (0.000-0.060)
[2019-01-29 12:02] LABS: CKMB 0.4 U/L (0.0-3.6)
--- NOTE | 2019-01-29 13:48 | NUR ---
LR BOLUS COMPLETE @1192
--- NOTE | 2019-01-29 13:48 | NUR ---
INCONT OF LARGE AMT URINE AND LARGE DWAYNE FORMED STOOL. CLEANED AND PERICARE GIVEN. NO SKIN PBMS NOTED
--- NOTE | 2019-01-29 13:56 | NUR ---
FAMILY AT BS EXPL POC
--- NOTE | 2019-01-29 13:56 | NUR ---
JOHN FROM [facility] CALLED, REPORT GIVEN.
--- NOTE | 2019-01-29 13:57 | NUR ---
ATTEMPTED TO CHANGE TO NC FROM NRM. SATS DROPPED TO 88-89% AND NRM REPLACED. SATS QUICKLY7 IMPROVED TO 94-95%
--- NOTE | 2019-01-29 14:00 | NUR ---
REPORT CALLED TO SPIKE VASQUEZ BY SBAR FORMAT
--- NOTE | 2019-01-29 14:08 | NUR ---
TRANSPORTED TI CT FOR CTA THEN ICU WITH CM, O2, RN AND IMPREGNATING MACHINE OPERATOR
--- NOTE | 2019-01-29 14:35 | NUR ---
ARRIVED TO UNIT AT THIS TIME. PT NOTED SHAKING ALL OVER, PER ER NURSE PT HAS BEEN DOING THIS SINCE ARRIVAL AND SEEMS TO DO IT WHEN CARE IS PROVIDED AND STOPS WHEN HE CALMS DOWN AFTER CARE IS COMPLETE. COUGH NOTED AT TIMES. PT UNABLE TO FOLLOW COMMANDS. SEE ADMIT ASSESSMENT. ON 15L NONREBREATHER. WILL CONTINUE PLAN OF CARE.
--- NOTE | 2019-01-29 15:08 | NUR ---
DR GUAMAN NOTIFIED OF CONSULT, ORDERS RECIEVED. STATED WILL SEE LATER TODAY AND TO KEEP SATS ABOVE 92%. WILL CONTINUE TO OBERVE.
[2019-01-29 15:54] LABS: PHENYTOIN (DILANTIN) 9.6 ug/mL (10.0-20.0); VALPROIC ACID (DEPAKOTE) 39.3 ug/mL (50.0-100.0)
--- NOTE | 2019-01-29 16:25 | NUR ---
PT APPEARS FLUSHED WITH REDNESS TO CHEST WELL, WARM TO TOUCH. TEMP IS 102.5 ORALLY. ICE PACKS PLACED TO AXILLARY AND GROIN SITES. PHYSICIAN FOR DR ANTHONY GRANDE. WAITING FOR CALLBACK. PT RECENTLY RECIEVED LINWOOD, THIS IS A HOME MED. PULSE RATE 125 SINUS TACH, BP 119/89. WAITING FOR CALLBACK.
--- NOTE | 2019-01-29 16:35 | NUR ---
DR GONZALEZ UPDATED REGARDING PT STATUS. ORDERED TYLENOL SUPP PRN. NO FURTHER ORDERS RECIEVED. WILL CONTINUE PLAN OF CARE.
--- NOTE | 2019-01-29 16:55 | NUR ---
DR GONZALEZ ON UNIT, UPDATED, HAS SEEN PT. ORDERS RECIEVED. SAID TO KEEP AN EYE ON REDNESS WHICH IS ON FACE AND CHEST TO SEE IF IT DOES NOT SPREAD. WILL CONTINUE TO OBSERVE.
--- NOTE | 2019-01-29 17:06 | NUR ---
RO CATHETER PLACED AT THIS TIME PER DR GONZALEZ ORDERS. 16F, 450 ML YELLOW URINE NOTED IMMEDIATELY TO CLOSED CONTAINER. NO ACUTE DISTRESS NOTED. PLACED VIA STERILE PROCEDURE/HOSPITAL POLICY. WILL CONTINUE PLAN OF CARE.
--- NOTE | 2019-01-29 18:00 | NUR ---
NOTED ORDER FOR NGT BY PHYSICIAN, DR GONZALEZ PAGED FOR ORDER CLARIFICATION.
[2019-01-29 18:27] LABS: APPEARANCE CLEAR (CLEAR); BILIRUBIN NEGATIVE (NEGATIVE); COLOR YELLOW (YELLOW); GLUCOSE NEGATIVE (NEGATIVE); KETONE NEGATIVE (NEGATIVE); NITRITE NEGATIVE (NEGATIVE); PROTEIN TRACE mg/dL (NEGATIVE); UROBILINOGEN NORMAL (NORMAL)
[2019-01-29 18:29] LABS: BACTERIA FEW /hpf (NONE SEEN); WHITE CELLS - URINE OCC /hpf (0-5)
--- NOTE | 2019-01-29 19:03 | NUR ---
TEMP 103.2 PRN TYLENOL ADMIN AND ICE PACKS CHANGED OUT. WILL NOTIFY PHYSICIANS.
--- NOTE | 2019-01-29 19:10 | NUR ---
DR GUAMAN NOTIFIED OF TEMP INCREASE TO 103.2 ORDERED MERREM 1G IV Q8H. ORDERS PLACED.
--- NOTE | 2019-01-29 19:40 | NUR ---
SHIFT ASSESSMENT COMPLETED, PT NOT RESPONDING TO COMMANDS MAKES SOME UNTELLIGABLE SOUNDS. CORNEAL RELEXES INTACT, PT ON 8L HIGHFLOW, NASAL CANNULA ISN'T STAYING IN PLACE WELL DUE TO PATIENT UNPURPOSEFUL JERKING MOTIONS
--- NOTE | 2019-01-29 19:50 | NUR ---
UNABLE TO COMPLETE SUICIDE ASSESSMENT RISK, PATIENT UNABLE TO ANSWER QUESTIONS
--- NOTE | 2019-01-29 19:59 | NUR ---
NOTED ORDERS FOR NGT PLACEMENT. ATTEMPTED X 4 WITH NO SUCCESS. PT TURNED HEAD SIDE TO SIDE AND USED HANDS TO PUSH STAFF HANDS AND NGT AWAY TO KEEP STAFF FROM PLACING NGT. RECIEVING NURSE NOTIFIED. DR CARLOS GRANDE.
--- NOTE | 2019-01-29 20:11 | NUR ---
CRYS SCHNEIDER - SAID NOT TO WORRY ABOUT THE NG TUBE AT THIS TIME DUE TO PATIENT INTOLERACE
--- NOTE | 2019-01-29 23:15 | NUR ---
REASSESSMENT COMPLETED SEE FLOWSHEET
[2019-01-30] VITALS (23 sets, daily range): BP systolic 101–148; BP diastolic 67–98; Ht 167.6 cm; Wt 76.4 kg
--- NOTE | 2019-01-30 01:00 | NUR ---
HOLD INSULIN PER SLIDING SCALE
--- NOTE | 2019-01-30 01:10 | NUR ---
NO APPARENT DISTRESS VSS CPOC
[2019-01-30 03:39] LABS: BASOPHILS 0.2 % (0-2); EOSINOPHILS 0 % (0-7); HEMATOCRIT 38.6 % (42.0-54.0); HEMOGLOBIN 12.7 g/dL (13.5-17.5); IMMATURE GRANULOCYTES 0.5 % (0-5); LYMPHOCYTES 9.2 % (15-50); MCH 31.1 pg (26.0-34.0); MCHC 32.9 g/dL (31.0-37.0); MCV 94.4 fL (80.0-100.0); MONOCYTES 7.9 % (2-11); NEUTROPHILS 82.2 % (40-80); PLATELET COUNT 157 10x3/uL (130-400); RBC 4.09 10x6/uL (4.20-6.10); RDW 14.6 % (11.5-14.5); WBC 9.4 10x3/uL (4.8-10.8)
[2019-01-30 03:49] LABS: ALBUMIN 2.2 g/dL (3.4-5.0); ALKALINE PHOSPHATASE 68 U/L (46-116); BILIRUBIN - TOTAL 0.53 mg/dL (0.2-1.3); CALCIUM 8.8 mg/dL (8.5-10.1); CARBON DIOXIDE 29.4 mmol/L (21.0-32.0); CHLORIDE - SERUM 105 mmol/L (98-107); MAGNESIUM - SERUM 1.9 mg/dL (1.8-2.4); PHOSPHOROUS 2.1 mg/dL (2.5-4.9); POTASSIUM - SERUM 3.7 mmol/L (3.5-5.1); PROTEIN - SERUM 7.1 g/dL (6.4-8.2); SODIUM 143 mmol/L (136-145); UREA NITROGEN 22 mg/dL (7-18)
[2019-01-30 03:50] LABS: ALT (SGPT) 22 U/L (10-68); CALC OSMOLALITY 288 mosm/kg (275-300); GLUCOSE 120 mg/dL (74-106); eGFR NON AFRICAN AMERICAN 87 mL/min (90-120)
--- NOTE | 2019-01-30 04:49 | NUR ---
PATIENT RESTING COMFORTABLY VSS SINUS TACH NOTED
--- NOTE | 2019-01-30 07:00 | NUR ---
REPORT REC'ED FROM OUT GOING RN - PT VSS - LYING SUPINE IN BED WITH EYES OPEN
--- NOTE | 2019-01-30 07:50 | NUR ---
ASSESSMENT COMPLETE - CPOC
--- NOTE | 2019-01-30 08:20 | NUR ---
MR. GONZALEZ - PATIENT'S UNCLE AT BEDSIDE - ANWERED ALL QUESTIONS TO FAMILY'S SATISFACTION - UNCLE STATED THE POA DOES NOT WANT A SWALLOW STUDY, NO VENTALATOR, NO AGRESSIVE MEASURESE - WHEN ASKED UNCLE IF PALLATIVE CARE IS AN OPTION - MR. GONZALEZ STATED HE EXPECTS PATIENT TO RECOVER, "HE HAS GREAT REBOUND QUALITIES." UNCLE THANKED THIS RN FOR DISCUSSING PLAN OF CARE
--- NOTE | 2019-01-30 09:00 | NUR ---
MEDICATIONS GIVEN - NOTIFIED PHARMACY OF NEED FOR PHROSPHOUS REPLACEMENT RX - CPOC
--- NOTE | 2019-01-30 11:00 | NUR ---
ASSESSMENT COMPLETE - CPOC
--- NOTE | 2019-01-30 11:30 | NUR ---
BULLDOZER PRESS OPERATOR BROUGHT ORAL PHOSPHOUS REPLACEMENT - EXPLAINED PT IS NPO - WAITING ON IV REPLACEMENT - CPOC
--- NOTE | 2019-01-30 14:25 | NUR ---
LINWOOD IVPB ADMINISTERED - PT RESTING WITH EYES OPEN - CPOC AND REPORT FINDINGS
--- NOTE | 2019-01-30 15:48 | NUR ---
DR. THOMAS AT BEDSIDE FOR ASSESSEMNT- DICUSSED REDDENED KNEE AREA - CONFIRMED THIS IS A NEW ONSET - WILL MONITOR AND REPORT FINDINGS
--- NOTE | 2019-01-30 17:47 | NUR ---
PT RESTING WITH EYES OPEN CPOC
--- NOTE | 2019-01-30 19:50 | NUR ---
RECEIVED PATIENT CARE - SHIFT ASSESSMENT COMPLETED PT TEMP 100.0 ORAL VSS CPOC
--- NOTE | 2019-01-30 20:30 | NUR ---
INITIATED ABX AT THIS TIME. NOTED PATIENT TWITCHING. NO APPARENT DISTRESS CPOC
--- NOTE | 2019-01-30 23:10 | NUR ---
REASSESSMENT COMPLETED SEE FLOWSHEET
[2019-01-31] VITALS (24 sets, daily range): BP systolic 98–144; BP diastolic 53–105
--- NOTE | 2019-01-31 00:55 | NUR ---
VASCULAR ACCESS NURSE CONSULTED, PIV OBTAINED MEDICATIONS RECEIVED AT THIS TIME SEE EMAR FOR MED ADMINISTRATION. VSS CPOC
--- NOTE | 2019-01-31 01:30 | NUR ---
PT RESTING COMFORTABLY NO SIGNS OF DISTRESS AT THIS TIME CPOC
--- NOTE | 2019-01-31 01:44 | NUR ---
UNABLE TO COMPLETE SUICIDE SCREENING ASSESSMENT DUE TO COGNITIVE LIMITATIONS OF PATIENT.
--- NOTE | 2019-01-31 01:47 | NUR ---
PATIENT THRASHING ARMS AND HEAD AFTER SLOW PUSH 50MG DILANTIN - SEE EMAR FOR ADMINISTRATION TIMES
[2019-01-31 03:17] LABS: BASOPHILS 0.1 % (0-2); EOSINOPHILS 0.1 % (0-7); HEMOGLOBIN 11.7 g/dL (13.5-17.5); IMMATURE GRANULOCYTES 0.7 % (0-5); LYMPHOCYTES 10.3 % (15-50); MCH 31.2 pg (26.0-34.0); MCHC 32.5 g/dL (31.0-37.0); MONOCYTES 9.7 % (2-11); NEUTROPHILS 79.1 % (40-80); PLATELET COUNT 175 10x3/uL (130-400); RBC 3.75 10x6/uL (4.20-6.10); RDW 14.7 % (11.5-14.5); WBC 8.9 10x3/uL (4.8-10.8)
--- NOTE | 2019-01-31 03:26 | NUR ---
PATIENT SHOWING S/S OF SEIZURE ACTIVITY, PRN MEDICATION ADMINISTERED - REASSESSMENT COMPLETED SEE FLOWSHEET
[2019-01-31 03:54] LABS: ALBUMIN 2.1 g/dL (3.4-5.0); ALKALINE PHOSPHATASE 62 U/L (46-116); BILIRUBIN - TOTAL 0.48 mg/dL (0.2-1.3); CALC OSMOLALITY 290 mosm/kg (275-300); CALCIUM 8.7 mg/dL (8.5-10.1); CARBON DIOXIDE 27.7 mmol/L (21.0-32.0); CHLORIDE - SERUM 107 mmol/L (98-107); GLUCOSE 111 mg/dL (74-106); SODIUM 144 mmol/L (136-145); UREA NITROGEN 21 mg/dL (7-18)
[2019-01-31 03:57] LABS: ALT (SGPT) 47 U/L (10-68); CREATININE - SERUM 0.7 mg/dL (0.6-1.3); PHOSPHOROUS 2.9 mg/dL (2.5-4.9); POTASSIUM - SERUM 4.3 mmol/L (3.5-5.1); eGFR NON AFRICAN AMERICAN > 90 mL/min (90-120)
--- NOTE | 2019-01-31 09:27 | NUR ---
IV TO RT FOREARM PULLED OUT BY PT, CATHETER TIP INTACT. ALSO NOTED IV TO LT WRIST NO LONGER PATENT, LEAKS WHEN FLUSHING. DC, CATHETER TIP INTACT. LT SHOULDER IV NO LONGER PATENT WELL, CATHETER VISIBLY BENT AND PARTIALLY OUT OF SKIN, DCD, CATHETER TIP INTACT. ATTEMPTED TO RECITE IVS X 2 TIMES WITH NO SUCCESS. PT CURRENTLY HAS NO IV ACCESS. PHYSICIAN PAGED.
--- NOTE | 2019-01-31 09:40 | NUR ---
SPOKE WITH DR GONZALEZ, NOTIFIED OF NO IV ACCESS, HE STATED DR THOMAS WILL BE BY SHORTLY TO SEE PT. VSS. WILL CONTINUE PLAN OF CARE.
--- NOTE | 2019-01-31 10:44 | NUR ---
PER DR THOMAS: GIVE 1MG ATIVAN IM NOW SINCE UNABLE TO GIVE PT MARGARITA OR LINWOOD THIS AM. AND TALK TO FAMILY TO FIND OUT THEIR DECISION REGARDING HAVING A CVL PLACED OR NOT, AND IF NOT WHAT THEIR WISHES REGARDING PLAN OF CARE. WILL CALL PTS SISTER/POA SHORTLY. VSS. WILL CONTINUE PLAN OF CARE.
--- NOTE | 2019-01-31 11:05 | NUR ---
SPOKE WITH WILL, PTS POA. UPDATED REGARDING PT STATUS INCLUDING HAVING NO IV ACCESS WELL UNABLE TO INTAKE PO MEDS. SHE STATED SHE DID NOT WANT FEEDING TUBES BUT WAS OKAY FOR PT TO HAVE A CENTRAL LINE. PTS SISTER ALSO STATED THAT PT USUALLY NEEDS TO BE IN RESTRAINTS DURING HOSPITAL STAYS BECAUSE HE PULLES LINES, TUBES, IVS, AND EVERYTHING ELSE ATTACHED TO HIM. PHYSICIAN PAGED TO NOTIFY FOR FURTHER ORDERS. WILL CONTINUE PLAN OF CARE.
--- NOTE | 2019-01-31 11:21 | NUR ---
PER WILL, PTS POA, OKAY TO PLACE NGT IF NEEDED.
--- NOTE | 2019-01-31 11:36 | NUR ---
PER DR GUAMAN, PLACE NGT, IF CAN GET IT PLACED THEN CALL FOR FURTHER ORDERS RECARDING MEDS TO PLACE VIA NGT. AND IF NOT THEN WILL NEED TO CONSULT SURGEON FOR CVL PLACEMENT BUT OKAY TO WAIT FOR CVL PLACEMENT UNTIL TOMORROW SINCE PT WILL RECIEVE KATERYNA EID TODAY.
--- NOTE | 2019-01-31 14:15 | NUR ---
ATTEMPTED TO PLACE NGT AT THIS TIME PER ORDERS. UNSUCCESSFUL, BLEEDING NOTED DURING PLACEMENT ATTEMPT. DR GUAMAN ON UNIT DURING THAT TIME. STATED NO NEED TO TRY AGAIN AND TO CONSULT PICC LINE NURSE FOR A PICC LINE TOMORROW. ALSO PRN ORDER FOR RAVINDRA BECERRA FOR PT. WILL CONTINUE PLAN OF CARE.
--- NOTE | 2019-01-31 16:56 | NUR ---
NO ACUTE DISTRESS NOTED. NO CHANGE. VSS. CALL LIGHT IN REACH. WILL CONTINUE TO CLOSELY OBSERVE.
--- NOTE | 2019-01-31 18:04 | NUR ---
NO ACUTE DISTRESS NOTED. NO CHANGE. VSS. PT TURNED Q2H. ORAL CARE PROVIDED Q2H. WILL CONTINUE PLAN OF CARE.
--- NOTE | 2019-01-31 19:45 | NUR ---
RECEIVED PATIENT CARE - SHIFT ASSESSMENT COMPLETED SEE FLOWSHEET
--- NOTE | 2019-01-31 21:10 | NUR ---
PATIENT RESTING IN BED EVEN RISE AND FALL OF CHEST, FACIAL FLUSHING, TWITCHING NOTED VSS CPOC
--- NOTE | 2019-01-31 23:13 | NUR ---
PAGED FAMILY PRACTICE REGARDING PATIENT STATUS
--- NOTE | 2019-01-31 23:21 | NUR ---
WILL MOON APRN CALLED BACK, UPDATED ON PATIENT STATUS - ASKED FOR ATIVAN PRN IV ORDER TO BE CHANGED TO IM - PROVIDER STATED "I DON'T THINK THAT CAN BE GIVEN IM" PROVIDER QUESTIONED ORAL ROUTE UPDATED ABOUT FAMILY NOT WANTING PEG AND UNABLE TO PLACE NG AT THIS TIME. NO NEW ORDERS RECEIVED
[2019-02-01] VITALS (14 sets, daily range): BP systolic 102–164; BP diastolic 44–89
--- NOTE | 2019-02-01 03:10 | NUR ---
REASSESSMENT COMPLETED SEE FLOWSHEET
--- NOTE | 2019-02-01 04:13 | NUR ---
PATIENT RESTING COMFORTABLY - NO APPARENT DISTRESS - SINUS TACH NOTED CPOC
[2019-02-01 04:27] LABS: BASOPHILS 0.2 % (0-2); EOSINOPHILS 0.2 % (0-7); HEMATOCRIT 37.9 % (42.0-54.0); HEMOGLOBIN 12.5 g/dL (13.5-17.5); IMMATURE GRANULOCYTES 1.4 % (0-5); LYMPHOCYTES 8.2 % (15-50); MCH 31.4 pg (26.0-34.0); MCV 95.2 fL (80.0-100.0); MEAN PLATELET VOLUME 9.9 fL (7.4-10.4); RBC 3.98 10x6/uL (4.20-6.10); RDW 14.4 % (11.5-14.5)
[2019-02-01 04:39] LABS: PLATELET COUNT 226 10x3/uL (130-400); WBC 12.4 10x3/uL (4.8-10.8)
[2019-02-01 05:05] LABS: ALBUMIN 2.1 g/dL (3.4-5.0); ALKALINE PHOSPHATASE 78 U/L (46-116); BILIRUBIN - TOTAL 0.53 mg/dL (0.2-1.3); CALC OSMOLALITY 291 mosm/kg (275-300); CARBON DIOXIDE 24.1 mmol/L (21.0-32.0); CHLORIDE - SERUM 107 mmol/L (98-107); CREATININE - SERUM 0.8 mg/dL (0.6-1.3); GLUCOSE 75 mg/dL (74-106); POTASSIUM - SERUM 4.2 mmol/L (3.5-5.1); PROTEIN - SERUM 7.1 g/dL (6.4-8.2); SODIUM 147 mmol/L (136-145); UREA NITROGEN 16 mg/dL (7-18); eGFR NON AFRICAN AMERICAN > 90 mL/min (90-120)
[2019-02-01 05:07] LABS: ALT (SGPT) 66 U/L (10-68)
--- NOTE | 2019-02-01 09:21 | NUR ---
UNABLE TO ACCESS PATIENT FOR SUICIDE SCREENING AT THIS TIME DUE TO NEUROLOGICAL DEFICIT.
--- NOTE | 2019-02-01 09:45 | NUR ---
PT RESTING IN BED, EYES CLOSED. RESPIRATIONS SHALLOW AND FREQUENT. AROUSES TO VOICE, AND TOUCH. VITALS STABLE. NO C/O PAIN. NO S/S OF ACUTE DISTRESS NOTED. CALL LIGHT IN REACH, BED IN LOWEST POSITION. WILL CONTINUE TO MONITOR.
--- NOTE | 2019-02-01 09:50 | EC ---
PATIENT:CHUCK RAJAN DATE OF SERVICE: 01/29/19 SEX: M MEDICAL RECORD: [id number] DATE OF : [birth year] LOCATION:[facility] D231 AGE OF PATIENT: 43 ADMISSION DATE: 01/29/19 REFERRING PHYSICIAN: INTERPRETING PHYSICIAN: BRYCE DAWSON MD ECHOCARDIOGRAM REPORT ECHO CHARGES 4 ECHO COMPLETE Date: 01/30/19 CLINICAL DIAGNOSIS: SOB/ELEVATED BNP ECHOCARDIOGRAPHIC MEASUREMENTS (adult normal given) AC root (d.<3.7cm) 2.7 cm LV Septum d (<1.2 cm> 1.5 cm Valve Excursion 1.6 cm LV Septum (systole) 1.7 cm Left Atria (s.<4.0cm> 3.3 cm LVPW d(<1.2cm) 1.3 cm RV (d.<2.3cm) 1.8 cm LVPW (sytole) 1.8 cm LV diastole(<5.6CM) 5.2 cm MV E-F(>70mm/sec) cm LV systole 3.9 cm LVOT Diameter 1.6 cm MV exc.(>10mm) cm Est.ejection fraction (50-75%) % DOPPLER: LVIT cm/sec A 98.0 cm/sec E 114 cm/sec LA cm/sec RVSP 33.0 mmHg LVOT 138 cm/sec AOP1/2T m/s Asc. Ao 174 cm/sec RVOT 87.0 cm/sec RA cm/sec PA 106 cm/sec AV Gradient Peak 12.1 mmHg AV Mean 6.0 mmHg AV Area 1.4 cm MV Gradient Peak 5.4 mmHg MV Mean 2.1 mmHg MV Area cm COMMENTS: Him Director: Florence BAHOE Group Director Experience: 1 Dr. Dawson TAPE# PACS Pericardial Effusion N DATE OF SERVICE: 01/30/2019 FINDINGS: 1. Left ventricular chamber size is within normal limits. Left ventricular systolic function is normal. Overall ejection fraction is estimated at 55%. 2. Left atrium, right atrium, and right ventricular sizes are within normal limit. 3. Valvular structures have normal structure and motion. 4. Doppler interrogation reveals no significant valvular insufficiency or stenosis. ECHOCARDIOGRAM REPORT [id number] CHUCK RAJAN 5. No evidence of pericardial effusion or left ventricular thrombus. TRANSINT:[id number] Voice Confirmation ID: [id number] DOCUMENT ID: [id number] BRYCE DAWSON MD at 0950 CC: [id number] DICTATION DATE: 01/31/19 1102 HATCHERY HELPER: 01/31/19 1651 ADM IN [facility] [address] [id number]
--- NOTE | 2019-02-01 11:04 | NUR ---
NUTRITION F/U CHART REVIEWED. NOTE FAMILY DECLINES FEEDING TUBE. MD CONSIDERING PROCALAMINE WHEN APPROPRIATE. RD FOLLOWING
--- NOTE | 2019-02-01 11:20 | NUR ---
PT RESTING IN BED, EYES CLOSED. RESPIRATIONS EVEN AND SHALLOW. PT ON 12L HIGH FLOW O2, NC. NO S/S OF ACUTE DISTRESS NOTED. VITALS STABLE. BED ALARM ON AND BED IN LOWEST POSITION. WILL CONTINUE TO MONITOR.
--- NOTE | 2019-02-01 13:14 | NUR ---
PT BEING TRANSFERRED TO [facility], GAVE REPORT OVER THE PHONE.
--- NOTE | 2019-02-01 13:28 | NUR ---
COMPLETE BATH AND LINEN CHANGE
--- NOTE | 2019-02-01 13:41 | NUR ---
TRIED CALLING PT'S SISTER TO INFORM ABOUT PT BEING TRANSFERRED OUT OF ICU TO [facility], PHONE NOT ACCEPTING CALLS AT THIS TIME.
--- NOTE | 2019-02-01 13:46 | NUR ---
1333-RECEIVED VIA BED FROM ICU TO ROOM. MAX ASSIST PULL X 4 STAFF TO [facility] BED. WAS UNAWARE THAT PATIENT WAS SUPPOSE TO BE A DAILY WEIGHT, WAS NOT TOLD IN REPORT OR WOULD OF PLACED ON WHITE BED. LEFT FA PIV SEEN WRAPPED IN ESTEPHANIA OF LR INFUSING AT 70 CC/HR. ON 12 L PER NC HIGH FLOW. PATIENT IS CONTRACTED TO ALL EXTREMITIES. RO CATH PATENT WITH CONCENTRATED URINE. LEFT KNEE/THIGH IS SEEN WITH AN OUTLINE OF BLUE MARKER. WAS TOLD THAT THEY THOUGHT HE HAD SOME ALLERGIC REACTION TO SOME SOAP. NO SKIN ISSUES SEEN. HOB UP AT 30 DEGREES. NPO PER REPORT. KENYA MAT ALARM ON AND IN USE. PATIENT IS NON VERBRAL, PATIENT IS SHAKING IN BED. WAS TOLD THAT HE IS NOT HAVING A SEIZURE THAT HE HAS CP AND THIS IS NORMAL FOR HIM.
--- NOTE | 2019-02-01 13:55 | NUR ---
BRIDGETT RN FROM ICU TELLS ME THAT HIS SRS HAS NOT BEEN COMPLETED PATIENT IS NON VERBAL.
--- NOTE | 2019-02-01 15:23 | NUR ---
SUCTION SET UP IN ROOM WITH ELIZABETH IF NEEDED.
--- NOTE | 2019-02-01 15:51 | MORECARE ---
CASE MANAGEMENT DISCHARGE SUMMARY PATIENT: CHUCK RAJAN UNIT: [id number] ADM DATE: 01/29/19 AGE: 43 : 75 SEX: M ROOM/BED: D.1208 AUTHOR: MELA BEAL PHYSICIAN: REFERRING PHYSICIAN: YUMIKO GONZALEZ DO DATE OF SERVICE: 02/01/19 Discharge Plan Patient Name: CHUCK RAJAN Facility: [facility]:[place] : 1975 Planned Disposition: Intermediate Care Fac MCR Anticipated Discharge Date: Discharge Date: Expected LOS: Initial Reviewer: [id number] Initial Review Date: 01/29/2019 Generated: 02/01/19 4:51 pm Comments DCP- Discharge Planning Updated by [id number]: Debbie Orourke on 02/01/19 1:[address] Patient Name: CHUCK RAJAN Admission Status: ER Accout number: [id number] Admission Date: 01-29-2019 : 1975 Admission Diagnosis:SEPSIS, UNSPECIFIED ORGANISM Attending: YUMIKO GONZALEZ Current LOS: 3 Anticipated DC Date: Planned Disposition: Primary Insurance: MEDICARE A & B Discharge Planning Comments: lives at [facility]. Consult was put in for Hospice. phone call made to justine David [phone] tpts sister about Hospice with no answer. I left message for family to call back regarding Hospice. Bottom Finisher: Debbie Orourke Patient Name: CHUCK RAJAN Page [phone] at 1551 All edits/amendments must be made on the electronic document DICTATION DATE: 02/01/19 1550 SKIN DRIER: KRISTEN 02/01/19 1550 RPT#: [id number] DC DATE: STATUS: ADM IN [id number] [place] [address] END OF REPORT
--- NOTE | 2019-02-01 16:54 | NUR ---
TRIED TO SUCTION PATIENT WITH YANKER IT SOUNDED LIKE HE HAD SOME IN THE BACK OF HIS THROAT. HE KEPT CLAMPING DOWN ON YANKER AND TURNING HIS HEAD.
--- NOTE | 2019-02-01 17:50 | NUR ---
PER FAMILY MEMBER (UNCLE) STATES THAT HE SPOKE WITH CRISTIAN SOLIS AND WANTS HIM DEEP SUCTIONED THOUGH HIS NOSE. I CALLED DR HERNANDES FOR AN ORDER FOR RESP. TO DO THIS. I ALSO CALLED THEM TO COME. THEY STATES THEY ARE IN REPORT AND WILL COME SOON POSSIBLE.
--- NOTE | 2019-02-01 18:00 | NUR ---
O2 SAT IS 93 % ON 12L PER HIGH FLOW AND HR IS 113.
--- NOTE | 2019-02-01 18:37 | NUR ---
RESP. HERE FOR SUCTION. PER R.T. THEY ARE NOT ALLOWED TO DEEP SUCTION THROUGH THE NOSE ONLY THROUGH THE MOUTH. SUCTION IS OBTAINED ALONG WITH RESP CULTURE SENT TO LAB.
--- NOTE | 2019-02-01 19:47 | NUR ---
PT IN BED. NON VERBAL RESPONSE BUT DOES MAKE MOANING NOISES WHEN SPOKEN TO. NO ACUTE DISTRESS NOTED AT THIS TIME.
--- NOTE | 2019-02-01 20:56 | NUR ---
UNABLE TO OBTAIN VASCULAR ACCESS. CONSULT WITH VASCULAR ACCESS NURSE PENDING.
[2019-02-02] VITALS: BP 129/70
--- NOTE | 2019-02-02 02:20 | NUR ---
IV ACCESSED GAINED TO L UPPER ARM 22G
[2019-02-02 04:00] VITALS: BP 149/91
[2019-02-02 07:46] LABS: HEMATOCRIT 37.5 % (42.0-54.0); HEMOGLOBIN 12.1 g/dL (13.5-17.5); MCH 30.6 pg (26.0-34.0); MCHC 32.3 g/dL (31.0-37.0); MCV 94.7 fL (80.0-100.0); MEAN PLATELET VOLUME 9.9 fL (7.4-10.4); RBC 3.96 10x6/uL (4.20-6.10); WBC 12.1 10x3/uL (4.8-10.8)
[2019-02-02 07:47] LABS: PLATELET COUNT 294 10x3/uL (130-400)
[2019-02-02 07:49] LABS: ALKALINE PHOSPHATASE 86 U/L (46-116); ALT (SGPT) 55 U/L (10-68); BILIRUBIN - TOTAL 0.54 mg/dL (0.2-1.3); CALC OSMOLALITY 295 mosm/kg (275-300); CALCIUM 9.3 mg/dL (8.5-10.1); CARBON DIOXIDE 21.9 mmol/L (21.0-32.0); CHLORIDE - SERUM 109 mmol/L (98-107); CREATININE - SERUM 0.8 mg/dL (0.6-1.3); GLUCOSE 80 mg/dL (74-106); POTASSIUM - SERUM 3.6 mmol/L (3.5-5.1); PROTEIN - SERUM 7.3 g/dL (6.4-8.2); SODIUM 149 mmol/L (136-145); UREA NITROGEN 16 mg/dL (7-18); eGFR NON AFRICAN AMERICAN > 90 mL/min (90-120)
[2019-02-02 08:36] VITALS: BP 140/68
--- NOTE | 2019-02-02 08:50 | NUR ---
AM MEDS GIVEN AT THIS TIME, PT GARGALING A LOT, DEEP SUCTIONED AT THIS TIME BY RESP THERAPIST. PT ALERT, NONVERBAL. LT UPPER IV INFUSING NS AT 50CC/HR. RO DRAINING PEDRITO URINE TO GRAVITY. PT ON 15 HF, SOB AT TIMES. CALL LIGHT IN REACH, BEDSIDE RAILS X2, NAD NOTED, WILL CONTINUE PLAN OF CARE.
--- NOTE | 2019-02-02 08:54 | NUR ---
PT UNABLE TO ANSWER QUESTIONS FOR SUICIDE SCREENING. PT IS NONVERBAL WITH COGNITIVE LIMITATIONS.
[2019-02-02 09:03] LABS: ANISOCYTOSIS OCC; LYMPHOCYTES 11 % (15-50); MONOCYTES 14 % (2-11); NEUTROPHILS 57 % (40-80); PLATELET ESTIMATE NORMAL
--- NOTE | 2019-02-02 09:07 | MORECARE ---
CASE MANAGEMENT DISCHARGE SUMMARY PATIENT: CHUCK RAJAN UNIT: [id number] ADM DATE: 01/29/19 AGE: 43 : 75 SEX: M ROOM/BED: D.1208 AUTHOR: MELA BEAL PHYSICIAN: REFERRING PHYSICIAN: YUMIKO GONZALEZ DO DATE OF SERVICE: 02/02/19 Discharge Plan Patient Name: CHUCK RAJAN Facility: [facility]:[place] : 1975 Planned Disposition: Manager Sim[facility] Care Fac MCR Anticipated Discharge Date: Discharge Date: Expected LOS: Initial Reviewer: [id number] Initial Review Date: 01/29/2019 Generated: 02/02/19 10:06 am Comments DCP- Discharge Planning Updated by [email or web address]: Debbie Orourke on 02/01/19 1:[address] Patient Name: CHUCK RAJAN Admission Status: ER Accout number: [id number] Admission Date: 01-29-2019 : 1975 Admission Diagnosis:SEPSIS, UNSPECIFIED ORGANISM Attending: YUMIKO GONZALEZ Current LOS: 3 Anticipated DC Date: Planned Disposition: Primary Insurance: MEDICARE A & B Discharge Planning Comments: lives at [facility]. Consult was put in for Hospice. phone call made to justine David [phone] tpts sister about Hospice with no answer. I left message for family to call back regarding Hospice. [employer]: Debbie Orourke Last DP export: 02/01/19 2:51 pm Patient Name: CHUCK RAJAN Page [phone] at 0907 All edits/amendments must be made on the electronic document DICTATION DATE: 02/02/19905 PACKAGER HAND: KRISTEN 02/02/19905 RPT#: [id number] DC DATE: STATUS: ADM IN [facility] [address] [place] [address] END OF REPORT
--- NOTE | 2019-02-02 11:38 | NUR ---
IVPB CEFEPIME HUNG AT THIS TIME. ALSO DEEP SUCTIONED PT. REPOSITONED PT ON LT SIDE. NAD NOTED, WILL CONTINUE TO MONITOR.
[2019-02-02 12:15] VITALS: BP 143/79
--- NOTE | 2019-02-02 13:20 | NUR ---
PT SUCTIONED AT THIS TIME, NO FAMILY AT BEDSIDE, NAD NOTED, WILL CONTINUE TO MONITOR.
[2019-02-02 15:56] VITALS: BP 152/87
--- NOTE | 2019-02-02 16:49 | NUR ---
650MG OF TYLENOL SUPP GIVEN AT THIS TIME FOR TEMP OF 100.6. REPOSITIONED PT IN BED, AND TURNED HIM ON HIS RIGHT SIDE. FAMILY AT BEDSIDE, NAD NOTED.
--- NOTE | 2019-02-02 17:41 | MORECARE ---
CASE MANAGEMENT DISCHARGE SUMMARY PATIENT: CHUCK RAJAN UNIT: [id number] ADM DATE: 01/29/19 AGE: 43 : 75 SEX: M ROOM/BED: D.1208 AUTHOR: MELA BEAL PHYSICIAN: REFERRING PHYSICIAN: YUMIKO GONZALEZ DO DATE OF SERVICE: 02/02/19 Discharge Plan Patient Name: CHUCK RAJAN Facility: [facility]:[place] : 1975 Planned Disposition: Client Specialist Care Fac MCR Anticipated Discharge Date: Discharge Date: Expected LOS: Initial Reviewer: [email or web address] Initial Review Date: 01/29/2019 Generated: 02/02/19 6:41 pm Comments DCP- Discharge Planning Updated by [email or web address]: Crystal Lxu on 02/02/19 4:[address] [facility] met with patient and his POLilian David today around 4pm. Bunny called and stated after the meeting Joann decided to give the patient a few more days of IV Antibioitics and IV fluids. Bunny stated he would continue to follow the patient and will be happy to admit if Joann decides to go with Hospice. Bunny did state that Joann said she would rather he return to [facility] with Hospice if he does not improve. Crystal Lux RN, [facility] DCP- Discharge Planning Updated by [id number]: Debbie Orourke on 02/01/19 1:[address] Patient Name: CHUCK RAJAN Admission Status: ER Accout number: [id number] Admission Date: 01-29-2019 : 1975 Admission Diagnosis:SEPSIS, UNSPECIFIED ORGANISM Attending: YUMIKO GONZALEZ Current LOS: 3 Anticipated DC Date: Planned Disposition: Primary Insurance: MEDICARE A & B Discharge Planning Comments: lives at [facility]. Consult was put in for Hospice. phone call made to justine David [phone] tpts sister about Hospice with no answer. I left message for family to call back regarding Hospice. Belt Loop Cutter: Debbie Orourke Coverage Notice Reviewer: [id number] - Debbie Orourke Notice Issued Date-Time: 02/02/2019 9:15 Notice Type: Patient Choice Letter Notice Delivered To: Patient Relationship to Patient: Self Laborer Tin Can Name: Delivery Method: HAND - Hand Delivered Adriana Days: Prior Verbal Notification: Recipient Understood Notice: Yes Recipient Signature: Yes Med Rec Note Co-signed by Attending: Coverage Notice Comment: Reviewer: [id number] Cristina Orourke Notice Issued Date-Time: 02/02/2019 11:13 Notice Type: IM Discharge Notice Notice Delivered To: Family Member Relationship to Patient: Sister Laborer Tin Can Name: Delivery Method: PHONE - Phone Adriana Days: Prior Verbal Notification: Recipient Understood Notice: Yes Recipient Signature: Yes Med Rec Note Co-signed by Attending: Coverage Notice Comment: Last DP export: 02/02/19 8:07 am Patient Name: CHUCK RAJAN Page [id number] at 1741 All edits/amendments must be made on the electronic document DICTATION DATE: 02/02/191740 BINDERY CUTTER OPERATOR: KRISTEN 02/02/191740 RPT#: [id number] DC DATE: STATUS: ADM IN [facility] [address] [place] [address] END OF REPORT
--- NOTE | 2019-02-02 18:30 | NUR ---
TEMP NOW 100.1. PT IN BD, NONVEBAL, LOOKS AROUND WHEN SPOKEN TOO. NAD NOTED.
[2019-02-02 20:00] VITALS: BP 154/94
--- NOTE | 2019-02-02 20:16 | NUR ---
EVENING ROUNDS COMPLETED. VSS, ALERT BUT NON-VERBAL.ON ASSESSMENT, PT APPEARS TO BE SWEATY AND HAVING DIFFICULTY BREATHING. ASSESSED O2SAT, 84. ON 15L HF. IMMEDIATELY NOTIFIED RT. FAMILY AT THE BEDSIDE, TEMP WNL. PIV TO L.UPPER ARM INTACT, LR INFUSING @ 50. CRACKLES ON UPPER/LOWER QUADRANTS. CL WITHIN REACH, BED IN LOW, SR UP X2.
--- NOTE | 2019-02-02 20:30 | NUR ---
RT PERFORMED DEEP SUCTIONING. PT 02SAT @ 95% @ THIS TIME. FAMILY VOICED THANKS. WILL CTM. CL WITHIN REACH.
--- NOTE | 2019-02-03 00:45 | NUR ---
ON ASSESSMENT, PT BP IS 172/95. NOTIFIED CRYS MARTINEZ. CRAFT SUPERINTENDENT ORDERED APRESOLINE. NOTIFIED HOUSE SUPERVIOR ABOUT NEW ORDER. WILL ADMINISTER WHEN MED IS PULLED BY CATTLE SORTER. FAMILY AT BEDSIDE, NO S/S OF DISTRESS. RT IN WITH PT'S AT THIS TIME. WILL CTM.
[2019-02-03 00:52] VITALS: BP 172/95
--- NOTE | 2019-02-03 02:33 | NUR ---
WOOL FLEECE GRADER MATT PULLED APRESOLINE FROM THE PYXIS. I REASESSED BP, NOW 130/70. WILL HOLD APRESOLINE @ THIS TIME AND CTM PT. PT CURRENTLY IN BED WITH EYES CLOSE.
[2019-02-03 04:00] VITALS: BP 139/71
--- NOTE | 2019-02-03 04:30 | NUR ---
ON ASSESSMENT, PT SPO2 WAS 83. NOTIFIED RT STAT. RT IN PT ROOM AT THIS TIME PERFORMING DEEP SUCTIONING. PT HAS IMPROVED TO 83. RT STILL IN PT'S ROOM. ALL OTHER VSS AT THIS TIME.
--- NOTE | 2019-02-03 05:01 | NUR ---
RT PLACED PT ON A NON-REBREATHER TO HELP RAISE PT'S O2 LEVEL UP AFTER PERFORMING ANOTHER ROUND OF DEEP SUCTIONING. PT CURRENT O2 SAT IS @ 91. NON-REBREATHER REMOVED. PT IS RETURNED TO 15L HIGHFLOW NC WITH OXIMIZER. NO S/S OF DISTRESS. FAMILY @ BEDSIDE. WILL CTM.
[2019-02-03 06:14] LABS: ALBUMIN 1.9 g/dL (3.4-5.0); ALKALINE PHOSPHATASE 94 U/L (46-116); ALT (SGPT) 44 U/L (10-68); CALC OSMOLALITY 302 mosm/kg (275-300); CALCIUM 9.5 mg/dL (8.5-10.1); CARBON DIOXIDE 22.2 mmol/L (21.0-32.0); CHLORIDE - SERUM 113 mmol/L (98-107); GLUCOSE 87 mg/dL (74-106); POTASSIUM - SERUM 3.9 mmol/L (3.5-5.1); PROTEIN - SERUM 7.4 g/dL (6.4-8.2); SODIUM 153 mmol/L (136-145); UREA NITROGEN 12 mg/dL (7-18); eGFR NON AFRICAN AMERICAN 87 mL/min (90-120)
[2019-02-03 06:19] LABS: BASOPHILS 0.3 % (0-2); EOSINOPHILS 0.1 % (0-7); HEMATOCRIT 38.1 % (42.0-54.0); HEMOGLOBIN 12.1 g/dL (13.5-17.5); IMMATURE GRANULOCYTES 4.3 % (0-5); LYMPHOCYTES 8.2 % (15-50); MCH 30.5 pg (26.0-34.0); MCHC 31.8 g/dL (31.0-37.0); MEAN PLATELET VOLUME 9.9 fL (7.4-10.4); MONOCYTES 13.4 % (2-11); NEUTROPHILS 73.7 % (40-80); RBC 3.97 10x6/uL (4.20-6.10); RDW 15.5 % (11.5-14.5); WBC 14.7 10x3/uL (4.8-10.8)
[2019-02-03 06:22] LABS: PLATELET COUNT 427 10x3/uL (130-400)
--- NOTE | 2019-02-03 07:27 | NUR ---
PT FAMILY REFUSED ALL IV FLUIDS INCLUDING HIS ATBX. THEY ALSO REFUSED ANY DEEP SUCTIONING. THEY STATE " WE ARE READY TO LET HIM GO." PT PUT OUT 900CC'S FROM HIS RO. RESTING IN BED WITH EYES CLOSE. 02SAT @ 91 AND CURRENTLY ON 15L NON-REBREATHER. WILL CPOC.
--- NOTE | 2019-02-03 07:53 | NUR ---
FAMILY WANTS HOSPICE TO BE CALLED AND LET THEM KNOW THAT THEY HAVE DECIDE TO DO HOSPICE. CALLED [facility] AND LEFT MSG WITH ANSWERING SERVICE.
[2019-02-03 07:57] VITALS: BP 143/80
--- NOTE | 2019-02-03 11:42 | MORECARE ---
CASE MANAGEMENT DISCHARGE SUMMARY PATIENT: CHUCK RAJAN UNIT: [id number] ADM DATE: 01/29/19 AGE: 43 : 75 SEX: M ROOM/BED: D.1208 AUTHOR: MELA BEAL PHYSICIAN: REFERRING PHYSICIAN: YUMIKO GONZALEZ DO DATE OF SERVICE: 02/03/19 Discharge Plan Patient Name: CHUCK RAJAN Facility: [facility] : 1975 Planned Disposition: [facility] Sales [facility] Marketing Care Fac MCR Anticipated Discharge Date: Discharge Date: Expected LOS: Initial Reviewer: [id number] Initial Review Date: 01/29/2019 Generated: 02/03/19 12:41 pm Comments DCP- Discharge Planning Updated by [id number]: Crystal Lux on 02/03/19 10:[address] DC PLAN: Inpatient Hospice with [facility] at [facility]. Patient's daughter JUSTINE David has contacted [facility] and requested that they move forward with Inpatient hospice here at . [facility] here upon cm arrival to floor this morning and stated she was waiting on Dr. Preston to approve the admission. Crystal Lux RN, [facility] DCP- Discharge Planning Updated by [id number]: Crystal Lux on 02/02/19 4:[address] [facility] met with patient and his JUSTINE David today around 4pm. Bunny called and stated after the meeting Joann decided to give the patient a few more days of IV Antibioitics and IV fluids. Bunny stated he would continue to follow the patient and will be happy to admit if Joann decides to go with Hospice. Bunny did state that Joann said she would rather he return to [facility] with Hospice if he does not improve. Crystal Lux RN, [facility] DCP- Discharge Planning Updated by [id number]: Debbie Orourke on 02/01/19 1:[address] Patient Name: CHUCK RAJAN Admission Status: ER Accout number: [id number] Admission Date: 01-29-2019 : 1975 Admission Diagnosis:SEPSIS, UNSPECIFIED ORGANISM Attending: YUMIKO GONZALEZ Current LOS: 3 Anticipated DC Date: Planned Disposition: Primary Insurance: MEDICARE A & B Discharge Planning Comments: lives at [facility]. Consult was put in for Hospice. phone call made to justine David [phone] tpts sister about Hospice with no answer. I left message for family to call back regarding Hospice. Office Electrician: Debbie Orourke Coverage Notice Reviewer: [id number] Orourke Notice Issued Date-Time: 02/02/2019 9:15 Notice Type: Patient Choice Letter Notice Delivered To: Patient Relationship to Patient: Self Cold Header Operator Name: Delivery Method: HAND - Hand Delivered Adriana Days: Prior Verbal Notification: Recipient Understood Notice: Yes Recipient Signature: Yes Med Rec Note Co-signed by Attending: Coverage Notice Comment: Reviewer: [id number] Cristina Orourke Notice Issued Date-Time: 02/02/2019 11:13 Notice Type: IM Discharge Notice Notice Delivered To: Family Member Relationship to Patient: Sister Cold Header Operator Name: Delivery Method: PHONE - Phone Adriana Days: Prior Verbal Notification: Recipient Understood Notice: Yes Recipient Signature: Yes Med Rec Note Co-signed by Attending: Coverage Notice Comment: Last DP export: 02/02/19 4:41 pm Patient Name: CHUCK RAJAN Page [phone] at 1142 All edits/amendments must be made on the electronic document DICTATION DATE: 02/03/19 1141 GREENKEEPER: KRISTEN 02/03/19 1141 RPT#: [id number] DC DATE: STATUS: ADM IN [facility] [address] [place] [address] END OF REPORT
--- NOTE | 2019-02-03 12:34 | NUR ---
DISCHARGE INSTRUCTIONS PROVIDED TO FAMILY AT BEDSIDE, VERBALIZED UNDERSTANDING REGARDING TEACHING. WILL ADMIT TO HOSPICE.
== END 2019-02-03 12:36 | disposition hospice, inpatient (51) | DRG 871 ==
LOC: D.ER 10:17 → D.ICU 12:49 → D.M3 02-01 13:28
PROVIDERS: Family Medicine; Internal Medicine Pulmonary Disease; ADMIT Family Medicine; ATTEND Family Medicine
DX: A41.9 Sepsis, unspecified organism (principal); J69.0 Pneumonitis due to inhalation of food and vomit; R53.2 Functional quadriplegia; J96.21 Acute and chronic respiratory failure with hypoxia; E87.2 Acidosis; N17.9 Acute kidney failure, unspecified; J90 Pleural effusion, not elsewhere classified; Z66 Do not resuscitate; E83.39 Other disorders of phosphorus metabolism; G40.909 Epilepsy, unspecified, not intractable, without status epilepticus; R47.02 Dysphasia; N18.9 Chronic kidney disease, unspecified; M62.49 Contracture of muscle, multiple sites

== ENCOUNTER 2019-02-03 13:11 | Inpatient (IN) | payer OTHER ==
--- NOTE | 2019-02-03 14:02 | NUR ---
MORPHINE AIRLINE MANAGERIAL SUPERVISOR STARTED TO INFUSE AT 0.5MG CONT. WAITING ON PHARMACY TO BRING ATROPINE DROPS. PT RESTING COMFORTABLY IN BED, ON NONREBREATHER MASK, FAMILY AT BEDSIDE, NAD NOTED,W ILL CONTINUE TO MONITOR.
[2019-02-03 14:18] VITALS: BP 177/90; BMI 27.1
--- NOTE | 2019-02-03 14:49 | MORECARE ---
CASE MANAGEMENT DISCHARGE SUMMARY PATIENT: CHUCK RAJAN UNIT: [id number] ADM DATE: 02/03/19 AGE: 43 : 75 SEX: M ROOM/BED: D.1208 AUTHOR: MELA BEAL PHYSICIAN: REFERRING PHYSICIAN: SKYLER CHRISTINE MD DATE OF SERVICE: 02/03/19 Discharge Plan Patient Name: CHUCK RAJAN Facility: [facility]:[place] : 1975 Planned Disposition: Anticipated Discharge Date: Discharge Date: Expected LOS: Initial Reviewer: [email or web address] Initial Review Date: 02/03/2019 Generated: 02/03/19 3:49 pm Patient Name: CHUCK RAJAN Page [phone] at 1449 All edits/amendments must be made on the electronic document DICTATION DATE: 02/03/199 AC/DC REWINDER: KRISTEN 02/03/19 1449 RPT#: [id number] DC DATE: STATUS: ADM IN [facility] [address] [place] [address] END OF REPORT
--- NOTE | 2019-02-03 19:39 | NUR ---
ROUNDS COMPLETED. VSS, PT NON-VERBAL, APPEARS WEAK, AND WARM TO TOUCH. ON ASSESSMENT TEMP. 101.6, TYLENOL SUPP GIVEN @ THIS TIME. ALSO APPLIED A COOL WASH CLOTH ON PT'S FOREHEAD. FIREARMS ASSEMBLY SUPERVISOR INFUSING @ 0.5MG CONTINUOUS. FAMILY @ BEDSIDE. NON-REBREATHER ON WITH O2 @ 15L. WILL CPOC. CL WITHIN REACH.
--- NOTE | 2019-02-03 21:10 | NUR ---
FAMILY NOTIFIED ME THAT PT O2SAT IS RUNNING IN UPPER 60'S AND LOWER 70'S. CALLED AND NOTIFIED HOSPICE NURSE, CYNTHIA. ABOUT PT O2SAT. FAMILY STATES THEY ARE READY TO LET PT "GO." WILL CPOC.
--- NOTE | 2019-02-03 21:51 | NUR ---
FAMILY CALLED CALLED ME TO NOTIFY ME THAT PT PASSED. PT PULSELESS @ THIS TIME. NOTIFIED HOSPICE NURSE AND PRESS OPERATOR PRINTING. FAMILY IN PT'S ROOM. WILL CONTINUE TO PROVIDE COMFORT CARE. HOSPICE NURSE SAID SHE WILL BE HERE IN THE HOSPITAL IN 30MIN.
--- NOTE | 2019-02-03 22:03 | NUR ---
NURSE NURSING TECH IN PT'S ROOM CLEANING UP PT. EVENT PROMOTIONS COORDINATOR PUMP AND OTHER NS DC'D. STILL AWAITING HOSPICE NURSE.
[2019-02-07 09:42] VITALS: BMI 27.1
== END 2019-02-03 23:45 | DRG 951 ==
LOC: D.M3 13:11
PROVIDERS: ADMIT Legal Medicine; ATTEND Legal Medicine
DX: Z51.5 Encounter for palliative care (principal)